=== PATIENT | male | born 1935 | race Caucasian/White ===

== ENCOUNTER 2018-06-21 14:21 | Emergency (ER) | payer MEDICARE ==
--- NOTE | 2018-06-21 15:01 | ED Physician Documentation ---
PD HPI HEENT - Stated complaint Stated Complaint: MOUTH SWEELING/PX - Chief complaint Chief Complaint: Heent - History obtained from History obtained from: Patient, Family - History of Present Illness Timing - onset: How many days ago (10) Timing - duration: Days (10) Timing - details: Gradual onset, Still present Location: Mouth Improves: Nothing Worsens: Position Associated symptoms: No: Fever, Congestion, Rhinorrhea, Trismus, Unable to swallow, Swollen nodes, Facial swelling, Headache, Cough Similar symptoms before: Has not had sx before Recently seen: Not recently seen Review of Systems Constitutional: denies: Fever, Chills, Myalgias, Fatigue Eyes: denies: Decreased vision Ears: denies: Ear pain Nose: denies: Congestion Throat: denies: Sore throat Cardiac: denies: Chest pain / pressure Respiratory: denies: Dyspnea, Cough GI: denies: Nausea, Vomiting, Constipation, Diarrhea : denies: Dysuria PD PAST MEDICAL HISTORY - Past Medical History Past Medical History: Yes Cardiovascular: High cholesterol Neuro: Seizure disorder - Past Surgical History Past Surgical History: Yes General: Cholecystectomy, Appendectomy HEENT: Tonsil/Adenoidectomy Derm: Skin cancer surgery - Present Medications Home Medications: Ambulatory Orders Medication Instructions Recorded Confirmed Aspirin 06/21/18 Doxycycline Monohydrate 100 mg PO BID #10 tablet 06/21/18 Phenytoin Sodium Extended 06/21/18 [Dilantin] Triamcinolone Acetonide [Oralone] 0.5 gm DT BID #5 paste..g. 06/21/18 - Allergies Allergies/Adverse Reactions: Allergies Allergy/AdvReac Type Severity Reaction Status Date / Time No Known Drug Allergies Allergy Verified 06/21/18 14:29 - Social History Does the pt smoke?: No Smoking Status: Former smoker Does the pt drink ETOH?: No Does the pt have substance abuse?: No - Immunizations Immunizations are current?: Yes PD ED PE NORMAL - Vitals Vital signs reviewed: Yes (hypertensive ) - General General: Alert and oriented X 3, No acute distress, Well developed/nourished - HEENT HEENT: Atraumatic, PERRL, EOMI, Other (There is an apthous ulcer to the right lower buccal mucosa about 4mm in size and with a firm external ring with erythema ) - Respiratory Respiratory: No respiratory distress - Derm Derm: Normal color, Warm and dry, No rash - Extremities Extremities: No deformity, No edema - Neuro Neuro: Alert and oriented X 3, 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, No motor deficit, No sensory deficit, Normal speech Eye Opening: Spontaneous Motor: Obeys Commands Verbal: Oriented GCS Score: 15 - Psych Psych: Normal mood, Normal affect Results - Vitals Vitals: Vital Signs - 24 hr 06/21/18 14:26 Temperature 36.4 C L Heart Rate 76 Respiratory 20 Rate Blood Pressure 154/88 H O2 Saturation 97 Oxygen O2 Source Room air PD MEDICAL DECISION MAKING - ED course Complexity details: considered differential, d/w patient, d/w family ED course: 83-year-old male is visiting here from [place] has developed a canker sore on his right lower inner lip and this persisted for about 10 days. This began to bother him quite a bit and he is here for any form of treatment that might help. - Sepsis Event Vital Signs: Vital Signs - 24 hr 06/21/18 14:26 Temperature 36.4 C L Heart Rate 76 Respiratory 20 Rate Blood Pressure 154/88 H O2 Saturation 97 Oxygen O2 Source Room air Departure - Departure Disposition: 01 Home, Self Care Clinical Impression: Aphthous ulcer of mouth Condition: Stable Instructions: ED Canker Sore Follow-Up: Your, doctor [Other] Prescriptions: Doxycycline Monohydrate 100 mg PO BID #10 tablet Triamcinolone Acetonide [Oralone] 0.5 gm DT BID #5 paste..g.
[2018-06-21 15:23] VITALS: BP 151/83
== END 2018-06-21 15:22 | disposition home or self-care (01) ==
LOC: ED 14:21
DX: K12.0 Recurrent oral aphthae (principal); E78.00 Pure hypercholesterolemia, unspecified; Z87.891 Personal history of nicotine dependence
CPT/HCPCS: 99283